=== PATIENT | female | born 1990 | race Caucasian/White ===

== ENCOUNTER 2020-07-13 18:53 | Emergency (ER) | payer OTHER ==
[~2020-07-13] VITALS: Ht 149.9 cm; Wt 87.1 kg
[2020-07-13 19:00] VITALS: BP 127/79
--- NOTE | 2020-07-13 19:01 | NUR ---
SEEN AND EXAMINED BY ERMD IN TRIAGE ROOM
[2020-07-13] MEDS ORDERED: ACET-8386 PO (19:07)
[2020-07-13] MEDS ORDERED: NAPR-54 PO (19:07)
[2020-07-13] MEDS ORDERED: AMOX500C25 PO (19:07)
--- NOTE | 2020-07-13 19:13 | NUR ---
Patient discharged with v/s stable. Written and verbal after care instructions given and explained. Patient alert, oriented and verbalized understanding of instructions. Ambulatory with steady gait. All questions addressed prior to discharge. ID band removed. Patient advised to follow up with PMD. Rx of norco 5mg-325mg po q6h prn pain, naproxen 500mg bid po prn pain, and amoxicillin 500mg tid po given. Patient educated on indication of medication including possible reaction and side effects. Opportunity to ask questions provided and answered.
== END 2020-07-13 19:13 | disposition home or self-care (01) ==
LOC: MED 18:53
DX: H66.92 Otitis media, unspecified, left ear (principal); Z79.899 Other long term (current) drug therapy; Z90.49 Acquired absence of other specified parts of digestive tract
CPT/HCPCS: 99283

== ENCOUNTER 2021-02-15 22:59 | Emergency (ER) | payer OTHER ==
[~2021-02-15] VITALS: Ht 149.9 cm; Wt 97.6 kg
[~2021-02-15 22:59] MED LIST: ACET-8386 PO; AMOX500C25 PO; NAPR-54 PO
[2021-02-15 23:09] VITALS: BP 138/72
--- NOTE | 2021-02-15 23:11 | NUR ---
pt ambulated to bed 08 with steady gait.
--- NOTE | 2021-02-15 23:25 | NUR ---
Dr. Zhu examining patient.
[2021-02-15] MEDS ORDERED: CIPR7.5S OT (23:34)
[2021-02-15] MEDS ORDERED: IBUP-2218 PO (23:34)
[2021-02-15] MEDS ORDERED: IBUPROFEN 800 MG TAB PO ONE (23:35)
--- NOTE | 2021-02-15 23:47 | NUR ---
PATIENT CLEARED FOR DISCHARGE AT THIS TIME. PATIENT HAS NO FURTHER COMPLAINTS OR CONCERNS AT THIS TIME. DENIES ANY FURTEHR QUESTIONS FOLLOWING DISCHARGE TEACHING. ADVISED TO FOLLOW UP WITH PCP AND RX SENT TO [place].
== END 2021-02-15 23:47 | disposition home or self-care (01) ==
LOC: MED 22:59
DX: H60.91 Unspecified otitis externa, right ear (principal); Z79.899 Other long term (current) drug therapy
CPT/HCPCS: 81025; 99282

== ENCOUNTER 2023-05-14 01:58 | Emergency (ER) | payer OTHER ==
[~2023-05-14] VITALS: Ht 124.5 cm; Wt 91.2 kg
[~2023-05-14 01:58] MED LIST changes: -ACET-8386 PO; +ACET-8905 PO; +CIPR7.5S OT; +IBUP-2218 PO
[2023-05-14 02:22] VITALS: BP 119/77; PULSE 71; RESP 18; TEMP 97; O2SAT 98
[2023-05-14] MEDS ORDERED: ACET-10509 PO (03:18)
[2023-05-14] MEDS: HYDROcodone/APAP 5/325 MG 1 TAB TAB PO ONE (03:24)
[2023-05-14] MEDS: KETOROLAC 30 MG/ML VIAL IM ONE (03:29)
[2023-05-14 03:35] VITALS: BP 119/77; PULSE 71; RESP 18; TEMP 97; O2SAT 98
== END 2023-05-14 03:35 | disposition home or self-care (01) ==
LOC: MED 01:58
DX: H66.92 Otitis media, unspecified, left ear (principal); Z79.899 Other long term (current) drug therapy
CPT/HCPCS: 81025; 96372; 99283; J1885